=== PATIENT | male | born 1975 | race Caucasian/White ===

== ENCOUNTER 2019-06-01 12:57 | Inpatient (IN) | payer MEDICAID ==
[2019-06-01] VITALS (24 sets, daily range): BP systolic 90–142; BP diastolic 37–78
[~2019-06-01] VITALS: Ht 190.5 cm; Wt 90.9 kg
[2019-06-01] MEDS ORDERED: aspirin 81mg tab.chew PO ONE (13:00)
--- NOTE | 2019-06-01 13:21 | NUR ---
PT WAS BROUGHT IN BY EMS R/T HAVING CHEST PAIN STATE HE IS A [employer] AND WAS DRIVING WHEN THE CHEST PAIN STARTED SO HE PULLED BECAUSE HE STARTED TO BLACK OUT HE CALLED 911 ASA AND NITRO WAS GIVEN BY EMS EKG DONE DR IVAN TO EVALUATE PT WAITING ON LABS
[2019-06-01 13:24] LABS: BASOPHILS % (AUTO) 0.2 % (0-1); EOSINOPHILS % (AUTO) 0 % (0-6); LYMPHOCYTES # (AUTO) 1.6 X10'3 (1.1-4.8); LYMPHOCYTES % (AUTO) 23.4 % (21-51); MEAN CORPUSCULAR HEMOGLOBIN 31.2 PG (27.0-31.0); MEAN CORPUSCULAR HGB CONC 33.8 g/dL (33.0-36.5); MEAN CORPUSCULAR VOLUME 92.5 FL (78-98); MEAN PLATELET VOLUME 7.2 FL (7.4-10.4); MONOCYTES # (AUTO) 0.6 X10'3 (0-0.9); MONOCYTES % (AUTO) 9.3 % (2-12); NEUTROPHILS # (AUTO) 4.5 X10'3 (1.8-7.7); NEUTROPHILS % (AUTO) 67.1 % (42-75); PLATELET COUNT 156 X10'3 (140-440); RED BLOOD COUNT 1.66 X10'6 (4.70-6.10); RED CELL DISTRIBUTION WIDTH 13.7 % (11.5-14.5); WHITE BLOOD COUNT 6.7 X10'3 (4.5-11.0)
[2019-06-01 13:31] LABS: HEMATOCRIT 15.4 % (42.0-52.0); HEMOGLOBIN 5.2 g/dl (14.0-17.9)
[2019-06-01 13:35] LABS: ALANINE AMINOTRANSFERASE 13 U/L (12-78); ALBUMIN 2.2 G/DL (3.4-5.0); ALBUMIN/GLOBULIN RATIO 0.5 (1.1-1.5); ALKALINE PHOSPHATASE 81 IU/L (46-116); ANION GAP 10 (8-16); ASPARTATE AMINO TRANSFERASE 17 U/L (10-37); BILIRUBIN,TOTAL 0.2 MG/DL (0.1-1.0); BLOOD UREA NITROGEN 37 MG/DL (7-18); BUN/CREATININE RATIO 10.2 (5.4-32.0); CALCIUM 7.7 MG/DL (8.5-10.1); CHLORIDE 107 MMOL/L (99-107); CREATININE 3.61 MG/DL (0.60-1.10); SODIUM 136 MMOL/L (135-145); TOTAL CARBON DIOXIDE 19.5 MMOL/L (24-32); TOTAL PROTEIN 6.8 G/DL (6.4-8.2); eGFR 18 ML/MIN
[2019-06-01 13:36] LABS: GLUCOSE 119 MG/DL (70-104)
[2019-06-01 13:41] LABS: LIPASE 126 U/L (73-393); MAGNESIUM 1.7 MG/DL (1.5-2.4)
[2019-06-01 13:42] LABS: ETHANOL < 0.010 GM/DL (0.0-0.010)
[2019-06-01 13:55] LABS: URINE AMPHETAMINE SCREEN NEGATIVE (Neg); URINE BARBITUATE SCREEN NEGATIVE (Neg); URINE BENZODIAZEPINES SCREEN NEGATIVE (Neg); URINE CANNABINOID SCREEN NEGATIVE (Neg); URINE COCAINE SCREEN NEGATIVE (Neg); URINE METHADONE SCREEN NEGATIVE (Neg); URINE OPIATE SCREEN NEGATIVE (Neg); URINE PHENCYCLIDINE SCREEN NEGATIVE (Neg)
[2019-06-01] MEDS ORDERED: normal saline 1000ML IV soln IVB ONE (14:20)
[2019-06-01] MEDS ORDERED: pantoprazole 40 MG vial IV ONE (14:40)
[2019-06-01] MEDS ORDERED: ondansetron/PF 4mg/2ml inj IV PRN ×2 (14:50→17:40)
[2019-06-01] MEDS ORDERED: acetaminophen 325mg tablet PO PRN ×2 (14:50)
[2019-06-01] MEDS ORDERED: potassium Cl 20 mEq SR tablet PO PRN ×2 (14:50)
[2019-06-01] MEDS ORDERED: HYDROcodone/acetaminophen 5mg/325mg tablet PO PRN (14:50)
[2019-06-01] MEDS ORDERED: magnesium 2GM in 50ml NS 50 ML IV PRN (14:50)
[2019-06-01] MEDS ORDERED: magnesium 4gm in 100ml NS 100 ML IV PRN (14:50)
[2019-06-01] MEDS ORDERED: magnesium Cl slow-release 64mg tablet PO PRN (14:50)
[2019-06-01] MEDS ORDERED: potassium CL 10mEq/100ml bag 100 ML IV PRN ×2 (14:50)
[2019-06-01] MEDS ORDERED: morphine 2 MG/ML inj. syringe IV PRN (14:50)
--- NOTE | 2019-06-01 15:30 | NUR ---
dr jim in talking to pt updating him on conditon. want mass blood tranfuson protocal used and is ordering 2 more units of blood and 2 units of ffp want the blood to run in at 500ml/hr pump speed turned up to 500
[2019-06-01] MEDS ORDERED: NO HOME MEDS (15:38)
[2019-06-01] MEDS ORDERED: LIDOcaine 1% 30ml preserv. free vial ONE (15:42)
[2019-06-01] MEDS ORDERED: ROPIVAcaine 0.5% (5mg/ml) 30ml vial ONE (15:43)
[2019-06-01] MEDS ORDERED: BUPIVAcaine/PF 2.5 mg/ml (0.25%) 30ml vial ONE (15:43)
[2019-06-01] MEDS ORDERED: pantoprazole 40MG/NS 100ML BAG 100 ML IV SCH (16:00)
--- NOTE | 2019-06-01 16:00 | NUR ---
report called to OR nurse deny all questions anwsered
[2019-06-01] MEDS ORDERED: midazolam 2 mg/2 ml injection ONE (16:10)
[2019-06-01] MEDS ORDERED: fentaNYL /PF 50mcg/ml 5ml ampule ONE (16:10)
--- NOTE | 2019-06-01 16:10 | NUR ---
pt left for OR second unit of blood and 1st unit of ffp running last unit of blood and ffp given to transport team
[2019-06-01] MEDS ORDERED: etomidate 2mg/ml inj. ONE (16:11)
[2019-06-01] MEDS ORDERED: rocuronium 10mg/ml inj IV ONE ×2 (16:11)
[2019-06-01] MEDS ORDERED: ceFOXitin 2 GM ADDVANTGE BAG 50 ML IV ONE (16:11)
[2019-06-01] MEDS ORDERED: sevoflurane 250ml liquid IH ONE (16:13)
[2019-06-01] MEDS ORDERED: propofol 10mg/ml 20ml vial IV ONE (16:13)
[2019-06-01] MEDS ORDERED: sugammadex 200mg/2ml injection IV ONE (17:09)
[2019-06-01] MEDS ORDERED: potassium Cl 20mEq/100mL bag 100 ML IV PRN (17:40)
[2019-06-01] MEDS ORDERED: CADD PCA waste documentation MC PRN (17:40)
[2019-06-01] MEDS ORDERED: naloxone 0.4 mg/ml inj IV PRN (17:40)
[2019-06-01] MEDS ORDERED: meperidine/PF 25mg/ml syringe ONE ×2 (17:54→18:38)
--- NOTE | 2019-06-01 17:55 | NUR ---
Received from OR via BED, accompanied by Anesthesiologist NAE and report given by Anesthesiolgist. PT DROWSY, OXYGENATING WELL ON 10 LPM O2 VIA MASK, NO RESP DISTRESS NOTED. PT C/O SEVERE ABD PAIN, MEDICATED PRN, SEE EMAR. MIDLINE ABD ISLAND DSG, MODERATE AMOUNT OF SANGINOUS DRAINAGE ON DSG. FERNANDO TO DRAIN TO LEFT SIDE OF ABD, SANGINOUS OUTPUT, GOOD SX. PT HAS NGT TO R NARE, HOOKED TO WALL SUCTION. SANGINOUS DRAINAGE IN TUBE. PT IS TACHYCARDIC, BP STABLE AT THIS TIME. FC PATENT, SCDS ON. ISTAT DRAWN FROM LAC PIV WITH PROPER WASTE. ANESTHESIA WANTS IT REDRAWN, RESULTS MAY BE SKEWED. 2ND ISTAT WAS A STICK, HEMOGRAM 21/7.1, K+ 6.9, DR SONI WAS NOTIFIED. DR GENAO WAS ALSO NOTIFIED OF LAB RESULTS AND WAS NOTIFIED THAT PT HAS BLOODY OUTPUT IN NGT.
[2019-06-01 18:08] LABS: OCCULT BLOOD STOOL POSITIVE (Neg)
--- NOTE | 2019-06-01 18:30 | NUR ---
Patient in room ICU 2045. I have received report from HIMANSHU Elam and had the opportunity to ask questions and assume patient care. Patient is still in recovery s/p splenectomy.
--- NOTE | 2019-06-01 18:30 | NUR ---
Patient in room ICU 2045. I have received report from Juliet and had the opportunity to ask questions and assume patient care. Pt resting comfortably.
[2019-06-01 18:36] LABS: ISTAT CREATININE 3.9 mg/dL (0.8-1.3); ISTAT HGB 6.5 g/dl (14.0-18.0); ISTAT IONIZED CALCIUM 1.1 mmol/L (1.03-1.32); ISTAT K 6.9 mmol/L (3.5-5.1); POC BUN/CREATININE RATIO 8.5 (5.4-32.0)
[2019-06-01 18:36] LABS: ISTAT IONIZED CALCIUM 1.09 mmol/L (1.03-1.32); POC BUN/CREATININE RATIO 8.3 (5.4-32.0)
[2019-06-01 18:55] LABS: ISTAT K 6.9 mmol/L (3.5-5.1)
[2019-06-01] MEDS: HYDROmorphone/NS 1 mg/ml CADD 50 ML IV SCH ×4 (19:00→23:00)
--- NOTE | 2019-06-01 19:06 | NUR ---
Rec'd report from Pratima in PACU, patient has midline dressing with FERNANDO drain moderate output. NG will be low/int.
[2019-06-01 19:07] LABS: ISTAT HGB 7.1 g/dl (14.0-18.0)
[2019-06-01] MEDS ORDERED: insulin regular, human 10 units/0.1 ml syringe IV ONE ×2 (19:15→22:25)
[2019-06-01] MEDS ORDERED: calcium chloride inj. 1,000 MG in normal saline 100ml IV soln 90 ML IV ONE (19:15)
[2019-06-01] MEDS ORDERED: albuterol 2.5 MG/3 ML nebule CONTNEB STA (19:15)
[2019-06-01] MEDS ORDERED: sodium bicarbonate (8.4%) inj. 1 MEQ/ML ML IV ONE (19:15)
[2019-06-01] MEDS ORDERED: dextrose 50%-water 50ml dispensing syringe IV ONE ×2 (19:15→22:25)
--- NOTE | 2019-06-01 19:15 | NUR ---
Patient arrived from PACU on hospital bed.
--- NOTE | 2019-06-01 19:20 | NUR ---
PT HAS EPISODE OF NAUSEA DURING PACU STAY, WAS RETCHING AND BLOODY OUTPUT WAS DRAINING FROM NGT. PT WAS GIVEN ZOFRAN AND SYMPTOMS WERE RELIEVED. NGT WAS FLUSHED TO CHECK FOR CLOG. REATTACHED TO WALL SX. PT WAS MEDICATED X 2 WITH IV DEMEROL. REPORT WAS CALLED TO SAW MAKER. NO BELONGINGS WITH PT IN PACU. PT IS TACHYPNEC AND TACHYCARDIC, BP STABLE. TRANSFERRED TO ICU IN GUARDED CONDITION.
[2019-06-01] MEDS: normal saline 1000ml 1,000 ML IV SCH ×2 (19:30→22:49)
[2019-06-01] MEDS ORDERED: calcium chloride 100 MG/1 ML inj IV ONE (19:30)
[2019-06-01 19:36] LABS: BASOPHILS # (AUTO) 0.1 X10'3 (0-0.2); BASOPHILS % (AUTO) 0.3 % (0-1); EOSINOPHILS % (AUTO) 0 % (0-6); HEMATOCRIT 23.4 % (42.0-52.0); HEMOGLOBIN 7.7 g/dl (14.0-17.9); LYMPHOCYTES # (AUTO) 2.8 X10'3 (1.1-4.8); LYMPHOCYTES % (AUTO) 14.7 % (21-51); MEAN CORPUSCULAR HEMOGLOBIN 30.7 PG (27.0-31.0); MEAN CORPUSCULAR HGB CONC 32.9 g/dL (33.0-36.5); MEAN CORPUSCULAR VOLUME 93.2 FL (78-98); MEAN PLATELET VOLUME 7.7 FL (7.4-10.4); MONOCYTES # (AUTO) 0.7 X10'3 (0-0.9); MONOCYTES % (AUTO) 3.5 % (2-12); NEUTROPHILS # (AUTO) 15.3 X10'3 (1.8-7.7); NEUTROPHILS % (AUTO) 81.5 % (42-75); PLATELET COUNT 101 X10'3 (140-440); RED BLOOD COUNT 2.51 X10'6 (4.70-6.10); RED CELL DISTRIBUTION WIDTH 14.2 % (11.5-14.5); WHITE BLOOD COUNT 18.8 X10'3 (4.5-11.0)
[2019-06-01 19:49] LABS: PARTIAL THROMBOPLASTIN TIME 24 SECONDS (22-32)
[2019-06-01 19:51] LABS: ALANINE AMINOTRANSFERASE 49 U/L (12-78); ALBUMIN 1.8 G/DL (3.4-5.0); ALBUMIN/GLOBULIN RATIO 0.5 (1.1-1.5); ALKALINE PHOSPHATASE 71 IU/L (46-116); ANION GAP 13 (8-16); ASPARTATE AMINO TRANSFERASE 60 U/L (10-37); BILIRUBIN,TOTAL 0.2 MG/DL (0.1-1.0); BLOOD UREA NITROGEN 38 MG/DL (7-18); BUN/CREATININE RATIO 8.9 (5.4-32.0); CALCIUM 6.9 MG/DL (8.5-10.1); CHLORIDE 108 MMOL/L (99-107); CREATININE 4.27 MG/DL (0.60-1.10); MAGNESIUM 1.7 MG/DL (1.5-2.4); PHOSPHORUS 6.5 MG/DL (2.3-4.5); SODIUM 137 MMOL/L (135-145); TOTAL CARBON DIOXIDE 15.7 MMOL/L (24-32); TOTAL PROTEIN 5.5 G/DL (6.4-8.2); eGFR 15 ML/MIN
[2019-06-01 19:52] LABS: GLUCOSE 251 MG/DL (70-104)
[2019-06-01 19:54] LABS: POTASSIUM 6.6 MMOL/L (3.5-5.1)
--- NOTE | 2019-06-01 20:15 | NUR ---
Per July,PA give 500mL NS fluid bolus and repeat labs in 90min.
[2019-06-01 20:32] LABS: MONOTEST NEGATIVE (Neg)
[2019-06-01] MEDS ORDERED: acetaminophen 1,000mg/100ml IV 100 ML IV ONE (20:40)
[2019-06-01] MEDS ORDERED: temazepam 15mg capsule PO PRN (21:00)
[2019-06-01 22:01] LABS: MEAN CORPUSCULAR HEMOGLOBIN 30.6 PG (27.0-31.0); MEAN CORPUSCULAR HGB CONC 33.5 g/dL (33.0-36.5); MEAN CORPUSCULAR VOLUME 91.4 FL (78-98); MEAN PLATELET VOLUME 8.2 FL (7.4-10.4); PLATELET COUNT 84 X10'3 (140-440); RED BLOOD COUNT 2.25 X10'6 (4.70-6.10); WHITE BLOOD COUNT 19.7 X10'3 (4.5-11.0)
[2019-06-01 22:05] LABS: HEMOGLOBIN 6.9 g/dl (14.0-17.9)
--- NOTE | 2019-06-01 22:05 | NUR ---
Received critical lab values from Kaden Dc H&H 6.9 and 20.6. Provider notified.
[2019-06-01 22:06] LABS: HEMATOCRIT 20.6 % (42.0-52.0)
[2019-06-01 22:13] LABS: ALBUMIN 1.6 G/DL (3.4-5.0); ANION GAP 8 (8-16); BLOOD UREA NITROGEN 38 MG/DL (7-18); BUN/CREATININE RATIO 8.7 (5.4-32.0); CALCIUM 7.9 MG/DL (8.5-10.1); CHLORIDE 113 MMOL/L (99-107); CREATININE 4.36 MG/DL (0.60-1.10); POTASSIUM 5.7 MMOL/L (3.5-5.1); SODIUM 139 MMOL/L (135-145); TOTAL CARBON DIOXIDE 18.1 MMOL/L (24-32); eGFR 15 ML/MIN
[2019-06-01 22:18] LABS: GLUCOSE 98 MG/DL (70-104)
[2019-06-02] VITALS (43 sets, daily range): BP systolic 15–133; BP diastolic 34–73
[2019-06-02] MEDS: ceFAZolin 1GM/D5W- ADD-VANTAGE 50 ML IV SCH ×3 (00:17→16:31)
[2019-06-02] MEDS: HYDROmorphone/NS 1 mg/ml CADD 50 ML IV SCH ×11 (01:00→23:00)
[2019-06-02 02:43] LABS: ALANINE AMINOTRANSFERASE 72 U/L (12-78); ALBUMIN 1.7 G/DL (3.4-5.0); ALBUMIN/GLOBULIN RATIO 0.5 (1.1-1.5); ALKALINE PHOSPHATASE 57 IU/L (46-116); ANION GAP 7 (8-16); ASPARTATE AMINO TRANSFERASE 96 U/L (10-37); BILIRUBIN,TOTAL 0.2 MG/DL (0.1-1.0); BLOOD UREA NITROGEN 41 MG/DL (7-18); BUN/CREATININE RATIO 8.7 (5.4-32.0); CALCIUM 7.1 MG/DL (8.5-10.1); CHLORIDE 113 MMOL/L (99-107); CREATININE 4.72 MG/DL (0.60-1.10); GLUCOSE 84 MG/DL (70-104); MAGNESIUM 1.6 MG/DL (1.5-2.4); SODIUM 139 MMOL/L (135-145); TOTAL CARBON DIOXIDE 19.4 MMOL/L (24-32); TOTAL PROTEIN 4.8 G/DL (6.4-8.2); eGFR 13 ML/MIN
[2019-06-02 02:44] LABS: BASOPHILS % (AUTO) 0.2 % (0-1); EOSINOPHILS % (AUTO) 0 % (0-6); LYMPHOCYTES # (AUTO) 2.7 X10'3 (1.1-4.8); MEAN CORPUSCULAR HEMOGLOBIN 30.7 PG (27.0-31.0); MEAN CORPUSCULAR HGB CONC 33.7 g/dL (33.0-36.5); MEAN CORPUSCULAR VOLUME 91.1 FL (78-98); MEAN PLATELET VOLUME 8.9 FL (7.4-10.4); MONOCYTES # (AUTO) 1.7 X10'3 (0-0.9); MONOCYTES % (AUTO) 8.7 % (2-12); NEUTROPHILS # (AUTO) 14.9 X10'3 (1.8-7.7); NEUTROPHILS % (AUTO) 77.1 % (42-75); PLATELET COUNT 91 X10'3 (140-440); RED BLOOD COUNT 2.25 X10'6 (4.70-6.10); RED CELL DISTRIBUTION WIDTH 14.3 % (11.5-14.5); WHITE BLOOD COUNT 19.3 X10'3 (4.5-11.0)
[2019-06-02 02:53] LABS: HEMATOCRIT 20.5 % (42.0-52.0); HEMOGLOBIN 6.9 g/dl (14.0-17.9)
[2019-06-02] MEDS ORDERED: dextrose 50%-water 50ml dispensing syringe IV ONE ×3 (03:00→21:45)
[2019-06-02] MEDS ORDERED: sodium bicarbonate (8.4%) 1 mEq/ml syringe IV ONE (03:00)
[2019-06-02] MEDS ORDERED: insulin regular, human 10 units/0.1 ml syringe IV ONE ×3 (03:00→21:45)
[2019-06-02] MEDS ORDERED: albuterol 2.5 MG/3 ML nebule CONTNEB ONE ×2 (03:00→21:45)
[2019-06-02] MEDS ORDERED: calcium gluconate inj. 1 GM in normal saline 100ml IV soln 90 ML IV ONE (03:00)
[2019-06-02] MEDS ORDERED: sodium bicarbonate (8.4%) inj. 1 MEQ/ML ML IV ONE ×2 (03:20→05:40)
--- NOTE | 2019-06-02 04:32 | NUR ---
Per July,PA hold bicarb.
[2019-06-02 04:47] LABS: MEAN CORPUSCULAR HGB CONC 34.1 g/dL (33.0-36.5); MEAN CORPUSCULAR VOLUME 90.7 FL (78-98); MEAN PLATELET VOLUME 8.3 FL (7.4-10.4); PLATELET COUNT 88 X10'3 (140-440); RED BLOOD COUNT 2.06 X10'6 (4.70-6.10); RED CELL DISTRIBUTION WIDTH 14.3 % (11.5-14.5); WHITE BLOOD COUNT 13.8 X10'3 (4.5-11.0)
[2019-06-02 04:54] LABS: HEMATOCRIT 18.7 % (42.0-52.0); HEMOGLOBIN 6.4 g/dl (14.0-17.9)
[2019-06-02 05:04] LABS: PARTIAL THROMBOPLASTIN TIME 32 SECONDS (22-32)
[2019-06-02 05:08] LABS: ALBUMIN 1.5 G/DL (3.4-5.0); ANION GAP 8 (8-16); BLOOD UREA NITROGEN 41 MG/DL (7-18); BUN/CREATININE RATIO 8.6 (5.4-32.0); CALCIUM 7.4 MG/DL (8.5-10.1); CHLORIDE 114 MMOL/L (99-107); CREATININE 4.74 MG/DL (0.60-1.10); GLUCOSE 154 MG/DL (70-104); PHOSPHORUS 2.2 MG/DL (2.3-4.5); SODIUM 138 MMOL/L (135-145); eGFR 13 ML/MIN
[2019-06-02 05:15] LABS: POTASSIUM 6.3 MMOL/L (3.5-5.1)
--- NOTE | 2019-06-02 06:25 | NUR ---
Problems reprioritized. Patient report given, questions answered & plan of care reviewed with HIMANSHU Gray.
--- NOTE | 2019-06-02 06:30 | NUR ---
Patient in room ICU 2045. I have received report from Jazmine DOWNS and had the opportunity to ask questions and assume patient care. Patient laying in bed with eyes closed, on 2l NC sating 96%, silva to gravity, L AC has 1 unit of blood infusing, R AC has NS and CADD infusing. August drain to L abdomen, midline dressing clean dry and intact. Vital signs stable will continue to monitor
[2019-06-02 06:36] LABS: CLARITY,URINE CLOUDY (Clear); COLOR,URINE YELLOW (Yellow); GLUCOSE, URINE NEGATIVE (Neg); KETONES,URINE NEGATIVE (Neg); LEUKOCYTE ESTERASE ,URINE NEGATIVE (Neg); NITRITES, URINE NEGATIVE (Neg); OCCULT BLOOD,URINE LARGE (Neg); PROTEIN,URINE 30 mg/dl (Neg); UROBILINOGEN,URINE 0.2 E.U/dL (0.2-1.0)
[2019-06-02 06:41] LABS: UA COLLECTION TYPE NON-SPECIFIED
[2019-06-02 06:43] LABS: MUCUS STRANDS FEW /LPF (Neg); RBC,URINE TNTC /HPF (0-2); SQUAMOUS EPITHELIAL CELL,UR FEW /LPF (FEW); WBC,URINE 20-30 /HPF (0-4)
[2019-06-02 06:45] LABS: WBC CASTS 0-3 /LPF (NEGATIVE); WBC CLUMPS,URINE FEW /HPF (NEGATIVE)
[2019-06-02 06:47] LABS: AMORPHOUS URATES 3+
[2019-06-02 06:48] LABS: BACTERIA,URINE 2+ /HPF (Neg)
[2019-06-02 06:49] LABS: TRANSITIONAL EPI CELLS,URINE FEW /HPF
[2019-06-02] MEDS: normal saline 1000ml 1,000 ML IV SCH ×3 (06:49→22:49)
[2019-06-02 07:10] LABS: HEMOGLOBIN 7.1 g/dl (14.0-17.9); MEAN CORPUSCULAR HEMOGLOBIN 30.2 PG (27.0-31.0); MEAN CORPUSCULAR HGB CONC 34.2 g/dL (33.0-36.5); MEAN CORPUSCULAR VOLUME 88.4 FL (78-98); MEAN PLATELET VOLUME 7.9 FL (7.4-10.4); PLATELET COUNT 89 X10'3 (140-440); RED BLOOD COUNT 2.33 X10'6 (4.70-6.10); RED CELL DISTRIBUTION WIDTH 14.3 % (11.5-14.5); WHITE BLOOD COUNT 15.2 X10'3 (4.5-11.0)
[2019-06-02 07:12] LABS: HEMATOCRIT 20.6 % (42.0-52.0)
[2019-06-02 07:30] LABS: UA EOSINOPHILS NO EOS /HPF
[2019-06-02] MEDS: K and/or MAG REPLACEMENT MC SCH (08:00)
[2019-06-02] MEDS: nicotine 14mg patch - 24hr TD SCH (08:00)
[2019-06-02] MEDS: pantoprazole 40 MG vial IV SCH (08:40)
[2019-06-02 09:50] LABS: PARTIAL THROMBOPLASTIN TIME 32 SECONDS (22-32)
[2019-06-02] MEDS: CefTRIAXone 2gm/D5W 50ml 50 ML IV SCH (10:10)
[2019-06-02] MEDS: calcium chloride 100 MG/1 ML inj IV PRN (10:25)
[2019-06-02 10:50] LABS: BASOPHILS % (AUTO) 0.2 % (0-1); EOSINOPHILS % (AUTO) 0 % (0-6); HEMATOCRIT 22.6 % (42.0-52.0); HEMOGLOBIN 7.7 g/dl (14.0-17.9); LYMPHOCYTES # (AUTO) 2.2 X10'3 (1.1-4.8); LYMPHOCYTES % (AUTO) 14.3 % (21-51); MEAN CORPUSCULAR HEMOGLOBIN 30.1 PG (27.0-31.0); MEAN CORPUSCULAR HGB CONC 33.9 g/dL (33.0-36.5); MEAN CORPUSCULAR VOLUME 88.9 FL (78-98); MEAN PLATELET VOLUME 8.2 FL (7.4-10.4); MONOCYTES # (AUTO) 1.5 X10'3 (0-0.9); MONOCYTES % (AUTO) 9.7 % (2-12); NEUTROPHILS # (AUTO) 11.5 X10'3 (1.8-7.7); NEUTROPHILS % (AUTO) 75.8 % (42-75); PLATELET COUNT 97 X10'3 (140-440); RED BLOOD COUNT 2.54 X10'6 (4.70-6.10); RED CELL DISTRIBUTION WIDTH 14.5 % (11.5-14.5); WHITE BLOOD COUNT 15.1 X10'3 (4.5-11.0)
--- NOTE | 2019-06-02 11:00 | NUR ---
L AC field start IV leaking, D/C the iv, cannula intact. Per Dr. Zamarripa get a PICC line. Called PICC line nurse and placed the order. Vital signs stable will continue to monitor
[2019-06-02 11:21] LABS: ALANINE AMINOTRANSFERASE 63 U/L (12-78); ALBUMIN 1.6 G/DL (3.4-5.0); ALBUMIN/GLOBULIN RATIO 0.5 (1.1-1.5); ALKALINE PHOSPHATASE 54 IU/L (46-116); ASPARTATE AMINO TRANSFERASE 78 U/L (10-37); BILIRUBIN,TOTAL 0.3 MG/DL (0.1-1.0); BLOOD UREA NITROGEN 44 MG/DL (7-18); BUN/CREATININE RATIO 9.3 (5.4-32.0); CALCIUM 7.3 MG/DL (8.5-10.1); CREATININE 4.73 MG/DL (0.60-1.10); GLUCOSE 97 MG/DL (70-104); TOTAL CARBON DIOXIDE 15.7 MMOL/L (24-32); TOTAL PROTEIN 4.8 G/DL (6.4-8.2); eGFR 13 ML/MIN
[2019-06-02 11:30] LABS: ANION GAP 12 (8-16); CHLORIDE 113 MMOL/L (99-107); SODIUM 141 MMOL/L (135-145)
[2019-06-02 11:34] LABS: POTASSIUM 6.2 MMOL/L (3.5-5.1); TROPONIN I 0.98 NG/ML (0.0-0.05)
[2019-06-02] MEDS: VANCOmycin 1250MG/NS 250ml Bag 250 ML IV SCH (12:21)
--- NOTE | 2019-06-02 12:52 | NUR ---
Initial: Pt admit w/ ruptured spleen s/p splenectomy w/ 5700L of blood drained from abdomen in OR per MD note. Pt noted to have vegetation on heart likely endocarditis since can cause splenic infarcts per asic design engineer at rounds. LBM 06/01. Pt remains NPO on ice chips post-op w/ creatinine and K increasing. Will monitor for PO diet advancement and additional protein needs post-op. Rec: 1. advance diet per MD to regular 2. MVI for wound healing once PO per MD 3. monitor for ONS needs once PO 4. routine bowel care post-op per MD 5. weekly wts Addendum: 06/02/19 at [address] Amended: Links added.
--- NOTE | 2019-06-02 16:10 | NUR ---
Picc line nurse here to place picc line. Picc line placed, patient tolerated well, vital signs stable during procedure. New tubing and NS hung and infusing to PICC line, CVP transducer with vamp placed to PICC line. CADD and TKO NS still infusing to R AC.
[2019-06-02 16:51] LABS: BASOPHILS % (AUTO) 0.2 % (0-1); EOSINOPHILS % (AUTO) 0 % (0-6); LYMPHOCYTES # (AUTO) 2.3 X10'3 (1.1-4.8); LYMPHOCYTES % (AUTO) 15.2 % (21-51); MEAN CORPUSCULAR HEMOGLOBIN 29.8 PG (27.0-31.0); MEAN CORPUSCULAR HGB CONC 33.3 g/dL (33.0-36.5); MEAN CORPUSCULAR VOLUME 89.7 FL (78-98); MEAN PLATELET VOLUME 8.1 FL (7.4-10.4); MONOCYTES # (AUTO) 1.4 X10'3 (0-0.9); MONOCYTES % (AUTO) 9.2 % (2-12); NEUTROPHILS # (AUTO) 11.2 X10'3 (1.8-7.7); NEUTROPHILS % (AUTO) 75.4 % (42-75); PLATELET COUNT 103 X10'3 (140-440); RED BLOOD COUNT 2.25 X10'6 (4.70-6.10); RED CELL DISTRIBUTION WIDTH 15.1 % (11.5-14.5); WHITE BLOOD COUNT 14.8 X10'3 (4.5-11.0)
[2019-06-02 16:59] LABS: HEMATOCRIT 20.2 % (42.0-52.0); HEMOGLOBIN 6.7 g/dl (14.0-17.9)
--- NOTE | 2019-06-02 17:05 | NUR ---
Called Dr. Quevedo regarding the critical h/h of 6.7/20.0, gave orders to transfuse 2 units prbc now, administer 1 unit of ffp after each unit of PRBC. no other new orders at this time
[2019-06-02 17:07] LABS: ALANINE AMINOTRANSFERASE 61 U/L (12-78); ALBUMIN 1.5 G/DL (3.4-5.0); ALBUMIN/GLOBULIN RATIO 0.4 (1.1-1.5); ALKALINE PHOSPHATASE 53 IU/L (46-116); ANION GAP 12 (8-16); ASPARTATE AMINO TRANSFERASE 70 U/L (10-37); BILIRUBIN,TOTAL 0.2 MG/DL (0.1-1.0); BLOOD UREA NITROGEN 45 MG/DL (7-18); BUN/CREATININE RATIO 9.7 (5.4-32.0); CALCIUM 7.4 MG/DL (8.5-10.1); CHLORIDE 114 MMOL/L (99-107); CREATININE 4.63 MG/DL (0.60-1.10); GLUCOSE 93 MG/DL (70-104); SODIUM 144 MMOL/L (135-145); TOTAL CARBON DIOXIDE 17.6 MMOL/L (24-32); TOTAL PROTEIN 4.9 G/DL (6.4-8.2); eGFR 14 ML/MIN
[2019-06-02 17:09] LABS: POTASSIUM 6.1 MMOL/L (3.5-5.1)
--- NOTE | 2019-06-02 18:17 | NUR ---
Problems reprioritized. Patient report given, questions answered & plan of care reviewed with Jazmine DOWNS.
--- NOTE | 2019-06-02 18:20 | NUR ---
Patient in room ICU 2045. I have received report from HIMANSHU Gray and had the opportunity to ask questions and assume patient care. Patient is resting comfortably on hospital bed, mother is at bedside. He will be getting several blood products due to low HH, I will continue to monitor.
--- NOTE | 2019-06-02 18:30 | NUR ---
Patient in room ICU 2045. I have received report from HIMANSHU Gray and had the opportunity to ask questions and assume patient care. Pt resting comfortably with Mother at bedside. Pt stable. Will continue to monitor.
[2019-06-02] MEDS: lactobacillus rhamnosus 10,000 MMU CELLS/CAPSULE PO SCH (20:00)
[2019-06-02 21:07] LABS: HEMOGLOBIN 7.5 g/dl (14.0-17.9); MEAN CORPUSCULAR HEMOGLOBIN 30.1 PG (27.0-31.0); MEAN CORPUSCULAR HGB CONC 33.9 g/dL (33.0-36.5); MEAN CORPUSCULAR VOLUME 88.9 FL (78-98); MEAN PLATELET VOLUME 8.2 FL (7.4-10.4); PLATELET COUNT 110 X10'3 (140-440); RED BLOOD COUNT 2.47 X10'6 (4.70-6.10); RED CELL DISTRIBUTION WIDTH 15.1 % (11.5-14.5); WHITE BLOOD COUNT 17.8 X10'3 (4.5-11.0)
[2019-06-02] MEDS ORDERED: insulin regular, human vial - multi-dose IV ONE (22:10)
[2019-06-03] VITALS (31 sets, daily range): BP systolic 103–142; BP diastolic 52–76
[2019-06-03] MEDS: normal saline 1000ml 1,000 ML IV SCH ×3 (00:11→20:43)
[2019-06-03] MEDS: HYDROmorphone/NS 1 mg/ml CADD 50 ML IV SCH ×12 (01:00→23:00)
[2019-06-03] MEDS: calcium chloride 100 MG/1 ML inj IV PRN ×2 (02:02→10:02)
[2019-06-03 03:20] LABS: BASOPHILS % (AUTO) 0.2 % (0-1); EOSINOPHILS % (AUTO) 0 % (0-6); HEMOGLOBIN 7.3 g/dl (14.0-17.9); LYMPHOCYTES # (AUTO) 2.4 X10'3 (1.1-4.8); MEAN CORPUSCULAR HEMOGLOBIN 30.4 PG (27.0-31.0); MEAN CORPUSCULAR VOLUME 89.5 FL (78-98); MEAN PLATELET VOLUME 8.5 FL (7.4-10.4); MONOCYTES # (AUTO) 1.8 X10'3 (0-0.9); MONOCYTES % (AUTO) 9.5 % (2-12); NEUTROPHILS # (AUTO) 14.2 X10'3 (1.8-7.7); NEUTROPHILS % (AUTO) 77.3 % (42-75); PLATELET COUNT 109 X10'3 (140-440); RED BLOOD COUNT 2.39 X10'6 (4.70-6.10); RED CELL DISTRIBUTION WIDTH 15.2 % (11.5-14.5); WHITE BLOOD COUNT 18.4 X10'3 (4.5-11.0)
[2019-06-03 03:24] LABS: HEMATOCRIT 21.4 % (42.0-52.0)
[2019-06-03 03:35] LABS: ALANINE AMINOTRANSFERASE 64 U/L (12-78); ALBUMIN 1.5 G/DL (3.4-5.0); ALBUMIN/GLOBULIN RATIO 0.5 (1.1-1.5); ALKALINE PHOSPHATASE 49 IU/L (46-116); ANION GAP 11 (8-16); ASPARTATE AMINO TRANSFERASE 68 U/L (10-37); BILIRUBIN,TOTAL 0.2 MG/DL (0.1-1.0); BLOOD UREA NITROGEN 41 MG/DL (7-18); BUN/CREATININE RATIO 9.8 (5.4-32.0); CALCIUM 8.1 MG/DL (8.5-10.1); CHLORIDE 117 MMOL/L (99-107); CREATININE 4.18 MG/DL (0.60-1.10); GLUCOSE 105 MG/DL (70-104); MAGNESIUM 1.6 MG/DL (1.5-2.4); PHOSPHORUS 4.6 MG/DL (2.3-4.5); POTASSIUM 5.3 MMOL/L (3.5-5.1); SODIUM 145 MMOL/L (135-145); TOTAL CARBON DIOXIDE 17.2 MMOL/L (24-32); TOTAL PROTEIN 4.8 G/DL (6.4-8.2); eGFR 16 ML/MIN
--- NOTE | 2019-06-03 06:14 | NUR ---
Problems reprioritized. Patient report given, questions answered & plan of care reviewed with HIMANSHU Gray.
--- NOTE | 2019-06-03 06:30 | NUR ---
Patient in room ICU 2045. I have received report from Jazmine DOWNS and had the opportunity to ask questions and assume patient care. Patient laying in bed watching TV, on 2L o2 sating 5%, Blood infusing to PICC line, Ns infusing to PICC line, vital signs stable will continue to monitor
[2019-06-03] MEDS: pantoprazole 40 MG vial IV SCH (07:53)
[2019-06-03] MEDS: CefTRIAXone 2gm/D5W 50ml 50 ML IV SCH (07:53)
[2019-06-03] MEDS: nicotine 14mg patch - 24hr TD SCH (07:53)
[2019-06-03] MEDS: lactobacillus rhamnosus 10,000 MMU CELLS/CAPSULE PO SCH ×2 (07:54→20:44)
[2019-06-03] MEDS: K and/or MAG REPLACEMENT MC SCH (08:43)
--- NOTE | 2019-06-03 09:00 | NUR ---
Patient refused turn, educated him on the importance of off loading pressure while he is in bed. He stated that he understood and that he will shift his hips while he is in bed.
[2019-06-03 10:36] LABS: BASOPHILS % (AUTO) 0.3 % (0-1); EOSINOPHILS % (AUTO) 0 % (0-6); HEMATOCRIT 24.6 % (42.0-52.0); HEMOGLOBIN 8.3 g/dl (14.0-17.9); LYMPHOCYTES # (AUTO) 2.1 X10'3 (1.1-4.8); LYMPHOCYTES % (AUTO) 11.2 % (21-51); MEAN CORPUSCULAR HEMOGLOBIN 30.3 PG (27.0-31.0); MEAN CORPUSCULAR HGB CONC 33.8 g/dL (33.0-36.5); MEAN CORPUSCULAR VOLUME 89.5 FL (78-98); MEAN PLATELET VOLUME 8.2 FL (7.4-10.4); MONOCYTES # (AUTO) 1.9 X10'3 (0-0.9); MONOCYTES % (AUTO) 10.3 % (2-12); NEUTROPHILS # (AUTO) 14.6 X10'3 (1.8-7.7); NEUTROPHILS % (AUTO) 78.2 % (42-75); PLATELET COUNT 114 X10'3 (140-440); RED BLOOD COUNT 2.75 X10'6 (4.70-6.10); WHITE BLOOD COUNT 18.7 X10'3 (4.5-11.0)
[2019-06-03 10:50] LABS: ALANINE AMINOTRANSFERASE 75 U/L (12-78); ALBUMIN 1.7 G/DL (3.4-5.0); ALBUMIN/GLOBULIN RATIO 0.5 (1.1-1.5); ALKALINE PHOSPHATASE 54 IU/L (46-116); ANION GAP 8 (8-16); ASPARTATE AMINO TRANSFERASE 78 U/L (10-37); BILIRUBIN,TOTAL 0.3 MG/DL (0.1-1.0); BLOOD UREA NITROGEN 40 MG/DL (7-18); CHLORIDE 116 MMOL/L (99-107); CREATININE 4.02 MG/DL (0.60-1.10); GLUCOSE 105 MG/DL (70-104); POTASSIUM 5.6 MMOL/L (3.5-5.1); SODIUM 143 MMOL/L (135-145); TOTAL CARBON DIOXIDE 19.5 MMOL/L (24-32); TOTAL PROTEIN 5.3 G/DL (6.4-8.2); eGFR 16 ML/MIN
[2019-06-03] MEDS ORDERED: ondansetron/PF 4mg/2ml inj IV PRN (11:15)
--- NOTE | 2019-06-03 11:20 | NUR ---
Dr Cordero by to evaluate the patient, stated to leave abdominal wound open to air, can advance patients diet to popsicles, sips of water and ice chips, will d/c NG tube once patient is passing flatus. Ordered a procalcitonin.
[2019-06-03] MEDS: VANCOmycin 1250MG/NS 250ml Bag 250 ML IV SCH (12:13)
--- NOTE | 2019-06-03 12:58 | NUR ---
called Dr. Zamarripa about the procalcitonin result of 86.99, he asked if the blood cultures have grown anything, i stated not as of yet. He said ok and then hung up
--- NOTE | 2019-06-03 14:24 | NUR ---
Called PCU called and gave report to RN, plan of care, meds and labs reviewed.
--- NOTE | 2019-06-03 15:28 | NUR ---
Transferred patient to room 3027a with the help of Estefani, patient transferred to new bed with no complications, valuables accompanied patient, one back pack with keys, cell phone and patient valuable bag with his clothes.
--- NOTE | 2019-06-03 16:58 | NUR ---
Patient in room PCU 3027. I have received report from HIMANSHU Basurto and had the opportunity to ask questions and assume patient care.
--- NOTE | 2019-06-03 16:59 | NUR ---
Report given to Leif DOWNS
--- NOTE | 2019-06-03 18:15 | NUR ---
Patient in room PCU 3027. I have received report from Leif DOWNS and had the opportunity to ask questions and assume patient care. Patient is resting in bed, he has no immediate needs at this time, will continue to monitor.
--- NOTE | 2019-06-03 18:29 | NUR ---
Problems reprioritized. Patient report given, questions answered & plan of care reviewed with HIMANSHU Esteves.
[2019-06-04] MEDS: HYDROmorphone/NS 1 mg/ml CADD 50 ML IV SCH ×12 (01:00→23:00)
[2019-06-04 02:34] LABS: BASOPHILS # (AUTO) 0.1 X10'3 (0-0.2); BASOPHILS % (AUTO) 0.4 % (0-1); EOSINOPHILS % (AUTO) 0.1 % (0-6); HEMATOCRIT 23.8 % (42.0-52.0); LYMPHOCYTES # (AUTO) 2.1 X10'3 (1.1-4.8); LYMPHOCYTES % (AUTO) 12.4 % (21-51); MEAN CORPUSCULAR HEMOGLOBIN 30.4 PG (27.0-31.0); MEAN CORPUSCULAR HGB CONC 33.6 g/dL (33.0-36.5); MEAN CORPUSCULAR VOLUME 90.5 FL (78-98); MEAN PLATELET VOLUME 8.4 FL (7.4-10.4); MONOCYTES # (AUTO) 1.7 X10'3 (0-0.9); MONOCYTES % (AUTO) 10.4 % (2-12); NEUTROPHILS # (AUTO) 12.7 X10'3 (1.8-7.7); NEUTROPHILS % (AUTO) 76.7 % (42-75); PLATELET COUNT 133 X10'3 (140-440); RED BLOOD COUNT 2.63 X10'6 (4.70-6.10); RED CELL DISTRIBUTION WIDTH 15.1 % (11.5-14.5); WHITE BLOOD COUNT 16.6 X10'3 (4.5-11.0)
[2019-06-04 02:45] LABS: PARTIAL THROMBOPLASTIN TIME 29 SECONDS (22-32)
[2019-06-04 02:56] LABS: ALANINE AMINOTRANSFERASE 105 U/L (12-78); ALBUMIN 1.7 G/DL (3.4-5.0); ALBUMIN/GLOBULIN RATIO 0.5 (1.1-1.5); ALKALINE PHOSPHATASE 54 IU/L (46-116); ANION GAP 8 (8-16); ASPARTATE AMINO TRANSFERASE 80 U/L (10-37); BILIRUBIN,TOTAL 0.4 MG/DL (0.1-1.0); BLOOD UREA NITROGEN 39 MG/DL (7-18); BUN/CREATININE RATIO 11.4 (5.4-32.0); CHLORIDE 118 MMOL/L (99-107); CREATININE 3.42 MG/DL (0.60-1.10); GLUCOSE 103 MG/DL (70-104); MAGNESIUM 1.6 MG/DL (1.5-2.4); PHOSPHORUS 4.7 MG/DL (2.3-4.5); POTASSIUM 5.1 MMOL/L (3.5-5.1); SODIUM 146 MMOL/L (135-145); TOTAL CARBON DIOXIDE 20.2 MMOL/L (24-32); TOTAL PROTEIN 5.4 G/DL (6.4-8.2); eGFR 20 ML/MIN
[2019-06-04 03:00] VITALS: BP 124/65
[2019-06-04] MEDS: normal saline 1000ml 1,000 ML IV SCH ×3 (04:46→23:06)
--- NOTE | 2019-06-04 06:00 | NUR ---
Patient in room PCU 3027. I have received report from Linn DOWNS and had the opportunity to ask questions and assume patient care.
--- NOTE | 2019-06-04 06:54 | NUR ---
Problems reprioritized. Patient report given, questions answered & plan of care reviewed with Romi DOWNS.
[2019-06-04] MEDS: K and/or MAG REPLACEMENT MC SCH (08:00)
[2019-06-04] MEDS: CefTRIAXone 2gm/D5W 50ml 50 ML IV SCH (08:57)
[2019-06-04] MEDS: pantoprazole 40 MG vial IV SCH (08:58)
[2019-06-04] MEDS: lactobacillus rhamnosus 10,000 MMU CELLS/CAPSULE PO SCH ×2 (08:58→21:41)
[2019-06-04] MEDS: nicotine 14mg patch - 24hr TD SCH (08:58)
[2019-06-04 11:00] VITALS: BP 121/66
[2019-06-04 12:35] LABS: BASOPHILS % (AUTO) 0.3 % (0-1); EOSINOPHILS % (AUTO) 0.1 % (0-6); HEMATOCRIT 23.7 % (42.0-52.0); LYMPHOCYTES # (AUTO) 1.8 X10'3 (1.1-4.8); MEAN CORPUSCULAR HEMOGLOBIN 30.5 PG (27.0-31.0); MEAN CORPUSCULAR HGB CONC 33.8 g/dL (33.0-36.5); MEAN CORPUSCULAR VOLUME 90.1 FL (78-98); MEAN PLATELET VOLUME 8.3 FL (7.4-10.4); MONOCYTES # (AUTO) 1.5 X10'3 (0-0.9); MONOCYTES % (AUTO) 10.3 % (2-12); NEUTROPHILS # (AUTO) 11.4 X10'3 (1.8-7.7); NEUTROPHILS % (AUTO) 77.3 % (42-75); PLATELET COUNT 155 X10'3 (140-440); RED BLOOD COUNT 2.63 X10'6 (4.70-6.10); WHITE BLOOD COUNT 14.8 X10'3 (4.5-11.0)
[2019-06-04] MEDS: VANCOmycin 1250MG/NS 250ml Bag 250 ML IV SCH (12:57)
[2019-06-04 17:39] VITALS: BP 133/68
--- NOTE | 2019-06-04 18:28 | NUR ---
Problems reprioritized. Patient report given, questions answered & plan of care reviewed with Laurent DOWNS.
--- NOTE | 2019-06-04 18:30 | NUR ---
Patient in room PCU 3027. I have received report from Romi DOWNS and had the opportunity to ask questions and assume patient care.
[2019-06-04 19:00] VITALS: BP 124/64
--- NOTE | 2019-06-04 19:31 | NUR ---
information regarding CADD pump assessment, pump had not been cleared since 06/01/2019, obtained information from 06/04/2019
[2019-06-04 23:00] VITALS: BP 113/68
[2019-06-05] MEDS: HYDROmorphone/NS 1 mg/ml CADD 50 ML IV SCH ×12 (01:00→23:00)
[2019-06-05 02:30] VITALS: BP 127/64
[2019-06-05 03:47] LABS: BASOPHILS % (AUTO) 0.3 % (0-1); EOSINOPHILS % (AUTO) 0.1 % (0-6); HEMATOCRIT 22.7 % (42.0-52.0); HEMOGLOBIN 7.6 g/dl (14.0-17.9); LYMPHOCYTES # (AUTO) 1.9 X10'3 (1.1-4.8); LYMPHOCYTES % (AUTO) 14.6 % (21-51); MEAN CORPUSCULAR HEMOGLOBIN 30.5 PG (27.0-31.0); MEAN CORPUSCULAR HGB CONC 33.4 g/dL (33.0-36.5); MEAN CORPUSCULAR VOLUME 91.2 FL (78-98); MEAN PLATELET VOLUME 8.4 FL (7.4-10.4); MONOCYTES # (AUTO) 1.4 X10'3 (0-0.9); MONOCYTES % (AUTO) 10.8 % (2-12); NEUTROPHILS # (AUTO) 9.5 X10'3 (1.8-7.7); NEUTROPHILS % (AUTO) 74.2 % (42-75); PLATELET COUNT 167 X10'3 (140-440); RED BLOOD COUNT 2.49 X10'6 (4.70-6.10); RED CELL DISTRIBUTION WIDTH 14.9 % (11.5-14.5); WHITE BLOOD COUNT 12.8 X10'3 (4.5-11.0)
[2019-06-05 04:02] LABS: PARTIAL THROMBOPLASTIN TIME 27 SECONDS (22-32)
[2019-06-05 04:04] LABS: ALANINE AMINOTRANSFERASE 81 U/L (12-78); ALBUMIN 1.6 G/DL (3.4-5.0); ALBUMIN/GLOBULIN RATIO 0.4 (1.1-1.5); ALKALINE PHOSPHATASE 69 IU/L (46-116); ANION GAP 7 (8-16); ASPARTATE AMINO TRANSFERASE 48 U/L (10-37); BILIRUBIN,TOTAL 0.7 MG/DL (0.1-1.0); BLOOD UREA NITROGEN 34 MG/DL (7-18); BUN/CREATININE RATIO 13.3 (5.4-32.0); CALCIUM 7.4 MG/DL (8.5-10.1); CHLORIDE 114 MMOL/L (99-107); CREATININE 2.56 MG/DL (0.60-1.10); GLUCOSE 102 MG/DL (70-104); MAGNESIUM 1.5 MG/DL (1.5-2.4); PHOSPHORUS 3.7 MG/DL (2.3-4.5); POTASSIUM 4.3 MMOL/L (3.5-5.1); SODIUM 141 MMOL/L (135-145); TOTAL CARBON DIOXIDE 19.7 MMOL/L (24-32); TOTAL PROTEIN 5.2 G/DL (6.4-8.2); eGFR 27 ML/MIN
--- NOTE | 2019-06-05 06:24 | NUR ---
Problems reprioritized. Patient report given, questions answered & plan of care reviewed with Jessenia DOWNS.
--- NOTE | 2019-06-05 06:28 | NUR ---
Patient in room PCU 3027. I have received report from HIMANSHU Mancilla and had the opportunity to ask questions and assume patient care.
[2019-06-05 07:00] VITALS: BP 119/59
[2019-06-05] MEDS: K and/or MAG REPLACEMENT MC SCH (08:00)
[2019-06-05] MEDS: normal saline 1000ml 1,000 ML IV SCH ×2 (08:56→14:49)
[2019-06-05] MEDS: pantoprazole 40 MG vial IV SCH (08:57)
[2019-06-05] MEDS: lactobacillus rhamnosus 10,000 MMU CELLS/CAPSULE PO SCH ×2 (08:57→20:37)
[2019-06-05] MEDS: nicotine 14mg patch - 24hr TD SCH (08:57)
[2019-06-05] MEDS: CefTRIAXone 2gm/D5W 50ml 50 ML IV SCH (08:57)
--- NOTE | 2019-06-05 09:30 | NUR ---
Dr. Tirado at bedside. New orders received to removed silva cath, advance diet as tolerated, milk of magnesia SEVERINO, PT eval, IS. Will continue to closely monitor.
[2019-06-05] MEDS ORDERED: magnesium hydroxide 30ml (MOM) UD suspension PO PRN (11:20)
[2019-06-05] MEDS ORDERED: VANCOMYCIN LEVEL IV ONE (11:30)
[2019-06-05 13:02] LABS: VANCOMYCIN,TROUGH 14.9 UG/ML (6.0-14.0)
[2019-06-05 13:37] LABS: RHEUM FACTOR QUAL REFLEX TITER POSITIVE (Neg)
[2019-06-05 13:38] LABS: RF TITER 20 IU/ml (Neg)
[2019-06-05] MEDS: VANCOmycin 1250MG/NS 250ml Bag 250 ML IV SCH (13:41)
--- NOTE | 2019-06-05 14:49 | NUR ---
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 Pt receiving abx for tx. Diet has been advanced to full liquid from clear liquid, pt documented with 100% PO intake on both diets. Pt passing flatus per MD notes and documented with small BM today per care trends, first BM since 06/01. Pt with MoM PRN not yet given. Will continue to follow closely. Rec: 1. advance diet to regular as medically indicated 2. MVI for wound healing per MD 3. monitor for ONS needs 4. routine bowel care post-op per MD 5. weekly wts Addendum: 06/05/19 at [address] Amended: Links added.
[2019-06-05 15:00] VITALS: BP 124/65
[2019-06-05 18:00] VITALS: BP 129/69
--- NOTE | 2019-06-05 18:18 | NUR ---
Problems reprioritized. Patient report given, questions answered & plan of care reviewed with HIMANSHU Mancilla.
--- NOTE | 2019-06-05 18:22 | NUR ---
Patient in room PCU 3027. I have received report from Jessenia DOWNS and had the opportunity to ask questions and assume patient care.
--- NOTE | 2019-06-05 19:30 | NUR ---
FER'joanne FERNANDO drain per Dr. Cordreo's orders. Minimal drainage upon removal, covered with sterile gauze and transparent dressing. Will continue to monitor for drainage.
[2019-06-06] VITALS (7 sets, daily range): BP systolic 113–138; BP diastolic 59–71
[2019-06-06] MEDS: HYDROmorphone/NS 1 mg/ml CADD 50 ML IV SCH ×12 (01:00→23:00)
[2019-06-06] MEDS: normal saline 1000ml 1,000 ML IV SCH ×4 (01:11→21:20)
[2019-06-06 04:05] LABS: BASOPHILS # (AUTO) 0.1 X10'3 (0-0.2); BASOPHILS % (AUTO) 0.9 % (0-1); EOSINOPHILS % (AUTO) 0.1 % (0-6); LYMPHOCYTES # (AUTO) 2.2 X10'3 (1.1-4.8); LYMPHOCYTES % (AUTO) 18.9 % (21-51); MEAN CORPUSCULAR HEMOGLOBIN 30.6 PG (27.0-31.0); MEAN CORPUSCULAR HGB CONC 33.3 g/dL (33.0-36.5); MEAN CORPUSCULAR VOLUME 91.9 FL (78-98); MEAN PLATELET VOLUME 8.7 FL (7.4-10.4); MONOCYTES # (AUTO) 1.5 X10'3 (0-0.9); NEUTROPHILS # (AUTO) 7.9 X10'3 (1.8-7.7); NEUTROPHILS % (AUTO) 67.1 % (42-75); PLATELET COUNT 166 X10'3 (140-440); RED BLOOD COUNT 2.27 X10'6 (4.70-6.10); RED CELL DISTRIBUTION WIDTH 14.4 % (11.5-14.5); WHITE BLOOD COUNT 11.8 X10'3 (4.5-11.0)
[2019-06-06 04:08] LABS: HEMATOCRIT 20.8 % (42.0-52.0); HEMOGLOBIN 6.9 g/dl (14.0-17.9)
[2019-06-06 04:13] LABS: PARTIAL THROMBOPLASTIN TIME 31 SECONDS (22-32)
[2019-06-06 04:19] LABS: ALANINE AMINOTRANSFERASE 51 U/L (12-78); ALBUMIN 1.3 G/DL (3.4-5.0); ALBUMIN/GLOBULIN RATIO 0.4 (1.1-1.5); ALKALINE PHOSPHATASE 82 IU/L (46-116); ANION GAP 8 (8-16); ASPARTATE AMINO TRANSFERASE 30 U/L (10-37); BILIRUBIN,TOTAL 0.5 MG/DL (0.1-1.0); BLOOD UREA NITROGEN 24 MG/DL (7-18); BUN/CREATININE RATIO 12.8 (5.4-32.0); CALCIUM 6.4 MG/DL (8.5-10.1); CHLORIDE 113 MMOL/L (99-107); CREATININE 1.88 MG/DL (0.60-1.10); GLUCOSE 72 MG/DL (70-104); MAGNESIUM 1.2 MG/DL (1.5-2.4); PHOSPHORUS 2.8 MG/DL (2.3-4.5); POTASSIUM 3.7 MMOL/L (3.5-5.1); SODIUM 139 MMOL/L (135-145); TOTAL PROTEIN 4.5 G/DL (6.4-8.2); eGFR 39 ML/MIN
--- NOTE | 2019-06-06 06:00 | NUR ---
Patient in room PCU 3027. I have received report from Laurent DOWNS and had the opportunity to ask questions and assume patient care.
--- NOTE | 2019-06-06 06:13 | NUR ---
Problems reprioritized. Patient report given, questions answered & plan of care reviewed with Romi DOWNS.
--- NOTE | 2019-06-06 06:21 | NUR ---
Orientee documentation: I have reviewed and agree with all interventions, assessments performed and documented by Kyle ODWNS.
[2019-06-06] MEDS: K and/or MAG REPLACEMENT MC SCH (08:00)
[2019-06-06] MEDS: pantoprazole 40 MG vial IV SCH (08:56)
[2019-06-06] MEDS: CefTRIAXone 2gm/D5W 50ml 50 ML IV SCH (08:56)
[2019-06-06] MEDS: lactobacillus rhamnosus 10,000 MMU CELLS/CAPSULE PO SCH ×2 (08:56→19:20)
[2019-06-06] MEDS: nicotine 14mg patch - 24hr TD SCH (08:57)
[2019-06-06 09:32] LABS: BASOPHILS % (AUTO) 0.3 % (0-1); EOSINOPHILS % (AUTO) 0.1 % (0-6); HEMATOCRIT 23.3 % (42.0-52.0); HEMOGLOBIN 7.8 g/dl (14.0-17.9); LYMPHOCYTES # (AUTO) 1.8 X10'3 (1.1-4.8); LYMPHOCYTES % (AUTO) 15.7 % (21-51); MEAN CORPUSCULAR HEMOGLOBIN 30.7 PG (27.0-31.0); MEAN CORPUSCULAR HGB CONC 33.6 g/dL (33.0-36.5); MEAN CORPUSCULAR VOLUME 91.3 FL (78-98); MEAN PLATELET VOLUME 8.8 FL (7.4-10.4); MONOCYTES # (AUTO) 1.6 X10'3 (0-0.9); MONOCYTES % (AUTO) 14.1 % (2-12); NEUTROPHILS # (AUTO) 8.1 X10'3 (1.8-7.7); NEUTROPHILS % (AUTO) 69.8 % (42-75); PLATELET COUNT 197 X10'3 (140-440); RED BLOOD COUNT 2.55 X10'6 (4.70-6.10); RED CELL DISTRIBUTION WIDTH 14.4 % (11.5-14.5); WHITE BLOOD COUNT 11.6 X10'3 (4.5-11.0)
[2019-06-06] MEDS ORDERED: haemoph B poly conj-tet tox/PF 10mcg/0.5ml vial IMVAC ONE (09:55)
[2019-06-06] MEDS ORDERED: mening vac A,C,Y,W-135 dip/PF 4 mcg/0.5 ml vaccine IMVAC ONE (09:55)
[2019-06-06] MEDS ORDERED: pneumococcal 23-VAL P-sac vacc 25 mcg/0.5ml vial IMVAC ONE (09:55)
[2019-06-06] MEDS: VANCOmycin 1250MG/NS 250ml Bag 250 ML IV SCH (12:58)
--- NOTE | 2019-06-06 18:16 | NUR ---
Problems reprioritized. Patient report given, questions answered & plan of care reviewed with Laurent DOWNS.
--- NOTE | 2019-06-06 18:26 | NUR ---
Patient in room PCU 3027. I have received report from Romi DOWNS and had the opportunity to ask questions and assume patient care.
[2019-06-07] MEDS: HYDROmorphone/NS 1 mg/ml CADD 50 ML IV SCH ×9 (00:52→16:57)
--- NOTE | 2019-06-07 02:19 | NUR ---
Page Sent PAGER ID: [phone] MESSAGE: [phone] Martell Michaels here for a splenectomy following a ruptured spleen, the only morning lab ordered today is a magnesium, has been getting CBC, BMP, and coags. would you like these ordered? Kyle [id number]
[2019-06-07 03:00] VITALS: BP 118/61
[2019-06-07 04:21] LABS: PARTIAL THROMBOPLASTIN TIME 27 SECONDS (22-32)
[2019-06-07 04:23] LABS: ALANINE AMINOTRANSFERASE 47 U/L (12-78); ALBUMIN 1.5 G/DL (3.4-5.0); ALBUMIN/GLOBULIN RATIO 0.4 (1.1-1.5); ALKALINE PHOSPHATASE 104 IU/L (46-116); ANION GAP 9 (8-16); ASPARTATE AMINO TRANSFERASE 29 U/L (10-37); BILIRUBIN,TOTAL 0.5 MG/DL (0.1-1.0); BLOOD UREA NITROGEN 31 MG/DL (7-18); CALCIUM 7.4 MG/DL (8.5-10.1); CHLORIDE 108 MMOL/L (99-107); CREATININE 2.21 MG/DL (0.60-1.10); GLUCOSE 90 MG/DL (70-104); MAGNESIUM 1.4 MG/DL (1.5-2.4); POTASSIUM 4.2 MMOL/L (3.5-5.1); SODIUM 136 MMOL/L (135-145); TOTAL CARBON DIOXIDE 19.5 MMOL/L (24-32); TOTAL PROTEIN 5.5 G/DL (6.4-8.2); eGFR 32 ML/MIN
[2019-06-07 04:51] LABS: BASOPHILS % (AUTO) 0.3 % (0-1); EOSINOPHILS % (AUTO) 0.2 % (0-6); HEMATOCRIT 22.8 % (42.0-52.0); HEMOGLOBIN 7.7 g/dl (14.0-17.9); LYMPHOCYTES # (AUTO) 2.5 X10'3 (1.1-4.8); LYMPHOCYTES % (AUTO) 19.3 % (21-51); MEAN CORPUSCULAR HEMOGLOBIN 30.9 PG (27.0-31.0); MEAN CORPUSCULAR HGB CONC 33.6 g/dL (33.0-36.5); MEAN CORPUSCULAR VOLUME 91.8 FL (78-98); MEAN PLATELET VOLUME 9.1 FL (7.4-10.4); MONOCYTES # (AUTO) 1.8 X10'3 (0-0.9); NEUTROPHILS # (AUTO) 8.7 X10'3 (1.8-7.7); NEUTROPHILS % (AUTO) 66.2 % (42-75); PLATELET COUNT 228 X10'3 (140-440); RED BLOOD COUNT 2.49 X10'6 (4.70-6.10); RED CELL DISTRIBUTION WIDTH 14.2 % (11.5-14.5); WHITE BLOOD COUNT 13.1 X10'3 (4.5-11.0)
[2019-06-07] MEDS ORDERED: potassium CL 10mEq/100ml bag 100 ML IV PRN (05:35)
[2019-06-07] MEDS ORDERED: potassium Cl 20 mEq SR tablet PO PRN ×2 (05:35)
[2019-06-07] MEDS ORDERED: magnesium 4gm in 100ml NS 100 ML IV PRN (05:35)
[2019-06-07 06:00] VITALS: BP 142/61
--- NOTE | 2019-06-07 06:18 | NUR ---
Problems reprioritized. Patient report given, questions answered & plan of care reviewed with Romi DOWNS.
--- NOTE | 2019-06-07 06:19 | NUR ---
Orientee documentation: I have reviewed and agree with all interventions, assessments performed and documented by Kyle DOWNS.
[2019-06-07] MEDS: normal saline 1000ml 1,000 ML IV SCH ×2 (06:49→17:06)
[2019-06-07] MEDS: K and/or MAG REPLACEMENT MC SCH (08:00)
[2019-06-07 08:35] LABS: COMPLEMENT C3, SERUM 102 mg/dL (82-167); COMPLEMENT C4, SERUM 17 mg/dL (14-44)
[2019-06-07] MEDS: CefTRIAXone 2gm/D5W 50ml 50 ML IV SCH (08:54)
[2019-06-07] MEDS: magnesium Cl slow-release 64mg tablet PO PRN ×2 (08:54→20:43)
[2019-06-07] MEDS: pantoprazole 40mg Tablet.DR PO SCH (08:54)
[2019-06-07] MEDS: lactobacillus rhamnosus 10,000 MMU CELLS/CAPSULE PO SCH ×2 (08:55→20:41)
[2019-06-07] MEDS: nicotine 14mg patch - 24hr TD SCH (09:07)
[2019-06-07 11:00] VITALS: BP 107/56
[2019-06-07] MEDS: VANCOmycin 1250MG/NS 250ml Bag 250 ML IV SCH (12:41)
[2019-06-07 15:00] VITALS: BP 124/59
[2019-06-07 18:00] VITALS: BP 136/61
--- NOTE | 2019-06-07 18:00 | NUR ---
Patient in room PCU 3027. I have received report from RAKEL DOWNS and had the opportunity to ask questions and assume patient care.
--- NOTE | 2019-06-07 19:16 | NUR ---
Problems reprioritized. Patient report given, questions answered & plan of care reviewed with Leia DOWNS.
[2019-06-07] MEDS: HYDROmorphone inj. 0.5 MG/0.5 ML DISP.SYRIN IV PRN ×2 (20:43→23:00)
[2019-06-07 22:00] VITALS: BP 119/57
[2019-06-08] VITALS (7 sets, daily range): BP systolic 119–136; BP diastolic 62–74
[2019-06-08] MEDS: normal saline 1000ml 1,000 ML IV SCH ×4 (02:54→20:00)
[2019-06-08] MEDS: HYDROmorphone inj. 0.5 MG/0.5 ML DISP.SYRIN IV PRN ×7 (02:55→20:31)
--- NOTE | 2019-06-08 06:00 | NUR ---
Problems reprioritized. Patient report given, questions answered & plan of care reviewed with Vanessa RN.
--- NOTE | 2019-06-08 06:48 | NUR ---
Patient in room PCU 3027. I have received report from HIMANSHU Dupree and had the opportunity to ask questions and assume patient care. Pt awake in bed. No complaints or requests. Will continue to monitor.
[2019-06-08] MEDS: nicotine 14mg patch - 24hr TD SCH (07:51)
[2019-06-08] MEDS: lactobacillus rhamnosus 10,000 MMU CELLS/CAPSULE PO SCH ×2 (07:51→20:30)
[2019-06-08] MEDS: CefTRIAXone 2gm/D5W 50ml 50 ML IV SCH (07:51)
[2019-06-08] MEDS: pantoprazole 40mg Tablet.DR PO SCH (07:51)
[2019-06-08] MEDS: K and/or MAG REPLACEMENT MC SCH (07:52)
--- NOTE | 2019-06-08 12:03 | NUR ---
Reassessment: Patient's diet has been advanced to regular and pt documented with 75-100% PO intake meeting nutrient needs. LBM 06/07 documented as small, still hasn't received MoM per med list. Will continue to follow closely. Rec: 1. Continue regular diet 2. MVI for wound healing per MD 3. monitor for ONS needs 4. routine bowel care post-op per MD 5. weekly wts Addendum: 06/08/19 at [address] Amended: Links added.
[2019-06-08] MEDS: VANCOmycin 1250MG/NS 250ml Bag 250 ML IV SCH (12:33)
--- NOTE | 2019-06-08 18:30 | NUR ---
Problems reprioritized. Patient report given, questions answered & plan of care reviewed with HIMANSHU Toth.
[2019-06-09] MEDS: HYDROmorphone inj. 0.5 MG/0.5 ML DISP.SYRIN IV PRN ×3 (00:16→11:42)
--- NOTE | 2019-06-09 00:26 | NUR ---
Patient in room PCU 3027. I have received report from HIMANSHU Mendez and had the opportunity to ask questions and assume patient care.
[2019-06-09 02:00] VITALS: BP 126/71
[2019-06-09 03:48] LABS: ALBUMIN 1.6 G/DL (3.4-5.0); ANION GAP 9 (8-16); BASOPHILS # (AUTO) 0.1 X10'3 (0-0.2); BASOPHILS % (AUTO) 0.7 % (0-1); BLOOD UREA NITROGEN 25 MG/DL (7-18); BUN/CREATININE RATIO 12.4 (5.4-32.0); CALCIUM 7.4 MG/DL (8.5-10.1); CHLORIDE 107 MMOL/L (99-107); CREATININE 2.02 MG/DL (0.60-1.10); EOSINOPHILS % (AUTO) 0.2 % (0-6); GLUCOSE 98 MG/DL (70-104); HEMATOCRIT 22.9 % (42.0-52.0); HEMOGLOBIN 7.5 g/dl (14.0-17.9); LYMPHOCYTES # (AUTO) 1.9 X10'3 (1.1-4.8); LYMPHOCYTES % (AUTO) 16.1 % (21-51); MEAN CORPUSCULAR HEMOGLOBIN 30.2 PG (27.0-31.0); MEAN CORPUSCULAR HGB CONC 32.8 g/dL (33.0-36.5); MEAN CORPUSCULAR VOLUME 92.2 FL (78-98); MONOCYTES # (AUTO) 1.3 X10'3 (0-0.9); MONOCYTES % (AUTO) 10.7 % (2-12); NEUTROPHILS # (AUTO) 8.6 X10'3 (1.8-7.7); NEUTROPHILS % (AUTO) 72.3 % (42-75); PLATELET COUNT 319 X10'3 (140-440); POTASSIUM 4.3 MMOL/L (3.5-5.1); RED BLOOD COUNT 2.48 X10'6 (4.70-6.10); RED CELL DISTRIBUTION WIDTH 14.3 % (11.5-14.5); SODIUM 134 MMOL/L (135-145); TOTAL CARBON DIOXIDE 18.3 MMOL/L (24-32); WHITE BLOOD COUNT 11.9 X10'3 (4.5-11.0); eGFR 36 ML/MIN
[2019-06-09] MEDS: normal saline 1000ml 1,000 ML IV SCH (05:36)
[2019-06-09 06:00] VITALS: BP 117/56
--- NOTE | 2019-06-09 06:26 | NUR ---
Problems reprioritized. Patient report given, questions answered & plan of care reviewed with HIMANSHU Mendez.
--- NOTE | 2019-06-09 06:54 | NUR ---
Patient in room PCU 3027. I have received report from HIMANSHU Toth and had the opportunity to ask questions and assume patient care.
[2019-06-09] MEDS: lactobacillus rhamnosus 10,000 MMU CELLS/CAPSULE PO SCH (07:54)
[2019-06-09] MEDS: pantoprazole 40mg Tablet.DR PO SCH (07:54)
[2019-06-09] MEDS: K and/or MAG REPLACEMENT MC SCH (07:55)
[2019-06-09] MEDS: nicotine 14mg patch - 24hr TD SCH (07:55)
[2019-06-09] MEDS: CefTRIAXone 2gm/D5W 50ml 50 ML IV SCH (07:55)
[2019-06-09 11:00] VITALS: BP 114/61
[2019-06-09] MEDS: VANCOmycin 1250MG/NS 250ml Bag 250 ML IV SCH (11:42)
[2019-06-09] MEDS ORDERED: NICO-631 TD (12:12)
--- NOTE | 2019-06-09 13:16 | NUR ---
Sent to Dr Logan PAGER ID: [phone] MESSAGE: RE: Nathen Michaels [id number]. Pt asking about pain medication for his recovery. - Vanessa [phone]
[2019-06-09] MEDS ORDERED: HYDR-4353 PO (13:45)
--- NOTE | 2019-06-09 14:28 | NUR ---
Pt discharged. PICC in place, tele removed, Rx sent with pt. Pt will f/u with surgical wound in one week, and will f/u with Dr Turpin regarding infection in june prior to finishing his abx. Pt was wheeled down by staff, accompanied by mother. Left in private vehicle.
== END 2019-06-09 14:00 | disposition home IV services (08) | DRG 710 ==
LOC: ER 12:57 → ED HOLD 15:12 → ICU 2S 17:20 → PCU 3S 06-03 14:55
PROVIDERS: ADMIT Internal Medicine; ATTEND Internal Medicine
PROC: 30233K1 Transfusion of Nonautologous Frozen Plasma into Peripheral Vein, Percutaneous Approach (ICD-10-PCS; 2019-06-01)
PROC: 30233N1 Transfusion of Nonautologous Red Blood Cells into Peripheral Vein, Percutaneous Approach (ICD-10-PCS; 2019-06-01)
PROC: 3E0T3BZ Introduction of Anesthetic Agent into Peripheral Nerves and Plexi, Percutaneous Approach (ICD-10-PCS; 2019-06-01)
PROC: 0W9G0ZZ Drainage of Peritoneal Cavity, Open Approach (ICD-10-PCS; 2019-06-01)
PROC: 07TP0ZZ Resection of Spleen, Open Approach (ICD-10-PCS; principal; 2019-06-01 16:13)
PROC: 30233K1 Transfusion of Nonautologous Frozen Plasma into Peripheral Vein, Percutaneous Approach (ICD-10-PCS; 2019-06-02)
PROC: 30233N1 Transfusion of Nonautologous Red Blood Cells into Peripheral Vein, Percutaneous Approach (ICD-10-PCS; 2019-06-02)
PROC: 02HV33Z Insertion of Infusion Device into Superior Vena Cava, Percutaneous Approach (ICD-10-PCS; 2019-06-02)
PROC: 4A02X4A Measurement of Cardiac Electrical Activity, Guidance, External Approach (ICD-10-PCS; 2019-06-02)
PROC: B548ZZA Ultrasonography of Superior Vena Cava, Guidance (ICD-10-PCS; 2019-06-02)
PROC: 30233K1 Transfusion of Nonautologous Frozen Plasma into Peripheral Vein, Percutaneous Approach (ICD-10-PCS; 2019-06-03)
PROC: 30233N1 Transfusion of Nonautologous Red Blood Cells into Peripheral Vein, Percutaneous Approach (ICD-10-PCS; 2019-06-03)
PROC: 3E0234Z Introduction of Serum, Toxoid and Vaccine into Muscle, Percutaneous Approach (ICD-10-PCS; 2019-06-06)
PROC: 3E0234Z Introduction of Serum, Toxoid and Vaccine into Muscle, Percutaneous Approach (ICD-10-PCS; 2019-06-06)
PROC: 3E0234Z Introduction of Serum, Toxoid and Vaccine into Muscle, Percutaneous Approach (ICD-10-PCS; 2019-06-06)
DX: A41.9 Sepsis, unspecified organism (principal); N17.0 Acute kidney failure with tubular necrosis; I33.0 Acute and subacute infective endocarditis; K65.0 Generalized (acute) peritonitis; E43 Unspecified severe protein-calorie malnutrition; R65.21 Severe sepsis with septic shock; K66.1 Hemoperitoneum; D62 Acute posthemorrhagic anemia; E87.5 Hyperkalemia; E86.0 Dehydration; S36.09XA Other injury of spleen, initial encounter; F17.210 Nicotine dependence, cigarettes, uncomplicated; D73.5 Infarction of spleen; E87.0 Hyperosmolality and hypernatremia; E87.6 Hypokalemia; Z79.899 Other long term (current) drug therapy; Z68.25 Body mass index [BMI] 25.0-25.9, adult
CPT/HCPCS: 36415; 36569; 71045; 74176; 76937; 80047; 80048; 80053; 80069; 80202; 80305; 80320; 81001; 82272; 82330; 82570; 82948; 83036; 83605; 83690; 83735; 83880; 84100; 84132; 84145; 84300; 84484; 85025; 85027; 85384; 85610; 85651; 85730; 86160; 86308; 86430; 86431; 86885; 86900; 86901; 86920; 87040; 87081; 87088; 87207; 90648; 90732; 93005; 93306; 94640; 96361; 96374; 97112; 97116; 97161; 97530; 99291; A4215; A4618; A6258; A7000; C1758; C9113; C9399; G0378; J0131; J0610; J0690; J0694; J0696; J1170; J1644; J1815; J2001; J2175; J2250; J2270; J2405; J2704; J2795; J3010; J3370; J3490; J7030; J7060; P9016; P9059